=== PATIENT | female | born 1955 | race African-American/Black ===

== ENCOUNTER 2018-05-11 03:25 | Inpatient (IN) | payer MEDICARE, MEDICAID ==
[~2018-05-11] VITALS: Ht 157.5 cm; Wt 98.8 kg
[2018-05-11] MEDS ORDERED: CALC25 PO (03:42)
[2018-05-11] MEDS ORDERED: EPOE10I SQ (03:42)
[2018-05-11] MEDS ORDERED: ATOR40TA28 PO (03:42)
[2018-05-11] MEDS ORDERED: LIDO30GE4 TP (03:42)
[2018-05-11] MEDS ORDERED: INSU100V SQ (03:42)
[2018-05-11] MEDS ORDERED: FOLI1 PO (03:42)
[2018-05-11] MEDS ORDERED: WARF1 PO (03:42)
[2018-05-11] MEDS ORDERED: CARV3 PO (03:42)
[2018-05-11] MEDS ORDERED: NYST30CR9 TP (03:42)
[2018-05-11] MEDS ORDERED: FAMO20 PO (03:42)
[2018-05-11 04:40] LABS: BASOPHILS % (AUTO) 0.8 % (0.0-2.0); EOSINOPHILS % (AUTO) 0.3 % (1.0-6.0); HEMATOCRIT 33.1 % (36-46); HEMOGLOBIN 11.4 g/dL (12.0-16.0); LYMPHOCYTES # (AUTO) 1.4 K/uL (1.0-4.8); LYMPHOCYTES % (AUTO) 23.2 % (22.0-44.0); MEAN CORPUSCULAR HEMOGLOBIN 32.2 pg (26.0-34.0); MEAN CORPUSCULAR HGB CONC 34.5 G/dL (31.0-37.0); MEAN CORPUSCULAR VOLUME 94 fL (80-100); MONOCYTES # (AUTO) 0.6 K/uL (0.1-1.0); MONOCYTES % (AUTO) 10.5 % (2.0-9.0); NEUTROPHILS % (AUTO) 65.2 % (40.0-70.0); PLATELET COUNT (AUTO) 140 K/uL (150-450); RED BLOOD CELL COUNT(AUTO) 3.54 MIL/uL (4.00-5.20); RED CELL DISTRIBUTION WIDTH 21.6 % (11.5-14.5)
[2018-05-11] MEDS ORDERED: LORazepam 2 MG/ML VIAL IVP ONE ×3 (04:45→07:00)
[2018-05-11 04:48] LABS: ANION GAP 7 mmol/L (8-16); CALCIUM, TOTAL 8.3 mg/dL (8.8-10.5); CARBON DIOXIDE 27 mmol/L (22-29); CHLORIDE 97 mmol/L (98-107); GLOMERULAR FILTR. RATE CALC 5 mL/min (>60); GLUCOSE,RANDOM 81 mg/dL (70-110); INR 1.7 (0.9-1.1); POTASSIUM 5.2 mmol/L (3.5-5.1); PROTHROMBIN TIME 17.4 SEC (9.4-11.6); SODIUM SERUM 131 mmol/L (136-145); UREA NITROGEN, BLOOD 25 mg/dL (7-18)
[2018-05-11 04:53] LABS: ALANINE AMINOTRANSFERASE 52 U/L (12-78); ALBUMIN 1.6 g/dL (3.4-5.0); ALKALINE PHOSPHATASE 197 U/L (46-116); ASPARTATE AMINOTRANSFERASE 70 U/L (15-37); BILIRUBIN,TOTAL 0.5 mg/dL (0.1-1.0); LIPASE 25 U/L (73-393); TOTAL PROTEIN, SERUM 6.5 g/dL (6.4-8.2)
[2018-05-11 04:55] LABS: TROPONIN I 0.13 ng/mL (0.00-0.05)
[2018-05-11] MEDS ORDERED: HALOPERIDOL LACTATE 5 MG/ML VIAL IM ONE (05:00)
[2018-05-11] MEDS ORDERED: LORazepam 2 MG/ML VIAL IM ONE (05:00)
[2018-05-11 05:05] LABS: B-TYPE NATRIURETIC PEPTIDE 406 pg/mL (0-100)
[2018-05-11] MEDS ORDERED: SODIUM POLYSTYRENE SULFONATE 15 GM/60 ML SUSPENSION BOTTLE PO ONE (05:30)
[2018-05-11] MEDS ORDERED: 0.9% SODIUM CHLORIDE 10 ML SYRINGE IVP PRN (05:45)
[2018-05-11] MEDS ORDERED: ONDANSETRON HCL 4 MG/2 ML VIAL IVP PRN ×2 (05:45→06:00)
[2018-05-11] MEDS ORDERED: ACETAMINOPHEN 325 MG TABLET PO PRN (05:45)
[2018-05-11 05:51] LABS: GLUCOSE,POINT OF CARE 79 MG/DL (70-110)
[2018-05-11] MEDS ORDERED: IPRATROPIUM BROMIDE 0.5 MG/2.5 ML NEB SOLUTION NEB PRN (06:00)
[2018-05-11] MEDS ORDERED: MAGNESIUM HYDROXIDE SUSPENSION 30 ML UDCUP PO PRN (06:00)
[2018-05-11] MEDS ORDERED: VANCOMYCIN HCL 1 GM/D5% WATER 200 ML IV SCH (06:00)
[2018-05-11] MEDS ORDERED: ZOLPIDEM TARTRATE 5 MG TABLET PO PRN (06:00)
[2018-05-11] MEDS ORDERED: BISACODYL 10 MG RECTAL RECTAL SUPPOSITORY PR PRN (06:00)
[2018-05-11] MEDS ORDERED: ALBUTEROL SULFATE 2.5 MG/0.5 ML NEB SOLUTION NEB PRN (06:00)
[2018-05-11] MEDS ORDERED: VANCOMYCIN HCL 1 GM/D5% WATER 200 ML IV PRN (06:15)
[2018-05-11] MEDS ORDERED: VANCOMYCIN HCL 1 GM/D5% WATER 200 ML IV ONE ×2 (06:30→11:00)
[2018-05-11] MEDS ORDERED: DiphenhydrAMINE HCL 50 MG/ML VIAL IVP ONE (07:00)
[2018-05-11 08:29] LABS: GLUCOSE,POINT OF CARE 96 MG/DL (70-110)
[2018-05-11] MEDS: CALCITRIOL 0.25 MCG CAPSULE PO SCH (09:00)
[2018-05-11] MEDS: CARVEDILOL 3.125 MG TABLET PO SCH ×2 (09:00→20:54)
[2018-05-11] MEDS: FOLIC ACID 1 MG TABLET PO SCH (09:00)
[2018-05-11] MEDS: FAMOTIDINE 20 MG TABLET PO SCH (09:00)
[2018-05-11 11:18] VITALS: BP 101/65
[2018-05-11] MEDS ORDERED: SODIUM CHLORIDE 0.9% 2,000 ML IV ONE (12:17)
[2018-05-11] MEDS ORDERED: *CLINICAL-WARFARIN SODIUM DOSING CLINICAL ONE (15:00)
[2018-05-11] MEDS ORDERED: WARFARIN SODIUM-INR 2.0-3.0-RX DOSING PER PROTOCOL PO PRN (15:00)
[2018-05-11 16:06] VITALS: BP 112/73
[2018-05-11] MEDS: WARFARIN SODIUM 1 MG TABLET PO SCH (17:00)
[2018-05-11 20:07] VITALS: BP 138/89
[2018-05-11] MEDS: ATORVASTATIN CALCIUM 40 MG TABLET PO SCH (20:54)
[2018-05-11] MEDS ORDERED: WARFARIN SODIUM 1 MG TABLET PO SCH (21:00)
[2018-05-12] MEDS: HEPARIN SODIUM,PORCINE 5,000 UNITS/ML VIAL SQ SCH ×3 (00:07→21:48)
[2018-05-12] MEDS: ACETAMINOPHEN 325 MG TABLET PO PRN (00:19)
[2018-05-12 00:21] VITALS: BP 104/67
[2018-05-12] MEDS: OxyCODONE HCL/ACETAMINOPHEN 5-325 MG TABLET PO PRN ×2 (00:46→08:49)
[2018-05-12] MEDS: LORazepam 2 MG/ML VIAL IVP PRN ×2 (02:41→11:40)
[2018-05-12 04:30] VITALS: BP_SYST 123; BP_SYST 72; BP_DIAS 123; BP_DIAS 72
[2018-05-12 07:05] VITALS: BP 131/95
[2018-05-12] MEDS: CARVEDILOL 3.125 MG TABLET PO SCH ×3 (08:13→21:56)
[2018-05-12 09:15] LABS: EOSINOPHILS % (AUTO) 0.8 % (1.0-6.0); HEMATOCRIT 32.8 % (36-46); HEMOGLOBIN 10.8 g/dL (12.0-16.0); MEAN CORPUSCULAR VOLUME 94 fL (80-100); MONOCYTES # (AUTO) 0.7 K/uL (0.1-1.0); MONOCYTES % (AUTO) 14.3 % (2.0-9.0); NEUTROPHILS # (AUTO) 2.9 K/uL (1.8-7.7); NEUTROPHILS % (AUTO) 62.9 % (40.0-70.0); PLATELET COUNT (AUTO) 130 K/uL (150-450); RED BLOOD CELL COUNT(AUTO) 3.49 MIL/uL (4.00-5.20); RED CELL DISTRIBUTION WIDTH 20.8 % (11.5-14.5)
[2018-05-12 09:26] LABS: CALCIUM, TOTAL 7.7 mg/dL (8.8-10.5); CREATININE 5.17 mg/dL (0.60-1.30); POTASSIUM 4.3 mmol/L (3.5-5.1)
[2018-05-12 09:39] LABS: INR 1.8 (0.9-1.1); PROTHROMBIN TIME 18.7 SEC (9.4-11.6)
[2018-05-12 09:40] LABS: ALBUMIN 1.4 g/dL (3.4-5.0); BILIRUBIN,TOTAL 0.5 mg/dL (0.1-1.0); CHOL/HDL RATIO 2.1 (3.9-5.7); MAGNESIUM 1.5 mg/dL (1.80-2.40); PHOSPHORUS 4.3 mg/dL (2.5-4.9); THYROID STIMULATING HORMONE 4.97 uIU/mL (0.36-3.74); TOTAL PROTEIN, SERUM 6.2 g/dL (6.4-8.2)
[2018-05-12 09:58] LABS: HEMOGLOBIN A1C 4.3 % (4.5-6.2)
[2018-05-12] MEDS ORDERED: SODIUM CHLORIDE 0.9% 1,000 ML IV ONE (10:01)
[2018-05-12 11:21] VITALS: BP 109/94
[2018-05-12] MEDS ORDERED: DIGOXIN 250 MCG/ML 2 ML AMP IVP ONE ×3 (13:15→18:15)
[2018-05-12] MEDS ORDERED: LORazepam 2 MG/ML VIAL IM PRN (14:15)
[2018-05-12] MEDS ORDERED: DIGOXIN 125 MCG TABLET PO ONE (14:15)
[2018-05-12] MEDS: FOLIC ACID 1 MG TABLET PO SCH (14:34)
[2018-05-12] MEDS: NYSTATIN 30 GM CREAM TP SCH ×2 (14:35→21:48)
[2018-05-12] MEDS: FAMOTIDINE 20 MG TABLET PO SCH (14:35)
[2018-05-12] MEDS: CALCITRIOL 0.25 MCG CAPSULE PO SCH (14:35)
[2018-05-12] MEDS ORDERED: HEPARIN SODIUM,PORCINE 1,000 UNITS/ML VIAL IVP ONE (16:45)
[2018-05-12] MEDS: WARFARIN SODIUM 1 MG TABLET PO SCH (17:33)
[2018-05-12 17:43] VITALS: BP 123/89
[2018-05-12] MEDS ORDERED: HEPARIN SODIUM,PORCINE 1,000 UNITS/ML VIAL ONE (17:52)
[2018-05-12] MEDS ORDERED: DiphenhydrAMINE HCL 50 MG/ML VIAL ONE (17:52)
[2018-05-12] MEDS ORDERED: INSULIN LISPRO 100 UNITS/ML SQ PRN (18:00)
[2018-05-12] MEDS ORDERED: DEXTROSE 50%-WATER 25 GM/50 ML SYRINGE IVP PRN (18:00)
[2018-05-12 19:34] LABS: GLUCOMETER DEV NAME(LOC) 5S 2Q; GLUCOSE,POINT OF CARE 89 MG/DL (70-110)
[2018-05-12 20:10] VITALS: BP 117/65
[2018-05-12] MEDS: ATORVASTATIN CALCIUM 40 MG TABLET PO SCH (21:56)
[2018-05-12 22:04] LABS: GLUCOMETER DEV NAME(LOC) 5S 1M; GLUCOSE,POINT OF CARE 82 MG/DL (70-110)
[2018-05-12 22:05] LABS: GLUCOMETER DEV NAME(LOC) 5N 1P; GLUCOSE,POINT OF CARE 96 MG/DL (70-110)
[2018-05-12 22:05] LABS: GLUCOMETER DEV NAME(LOC) 5N 1P; GLUCOSE,POINT OF CARE 65 MG/DL (70-110)
[2018-05-13] VITALS (7 sets, daily range): BP systolic 100–143; BP diastolic 69–86
[2018-05-13 05:39] LABS: GLUCOMETER DEV NAME(LOC) 5S 2Q; GLUCOSE,POINT OF CARE 71 MG/DL (70-110)
[2018-05-13] MEDS: OxyCODONE HCL/ACETAMINOPHEN 5-325 MG TABLET PO PRN ×2 (05:50→15:25)
[2018-05-13] MEDS ORDERED: SODIUM CHLORIDE 0.9% 1,000 ML IV ONE (06:23)
[2018-05-13 08:01] LABS: BASOPHILS % (AUTO) 0.8 % (0.0-2.0); EOSINOPHILS % (AUTO) 0.8 % (1.0-6.0); HEMATOCRIT 29.4 % (36-46); HEMOGLOBIN 9.9 g/dL (12.0-16.0); LYMPHOCYTES # (AUTO) 1.6 K/uL (1.0-4.8); LYMPHOCYTES % (AUTO) 35.3 % (22.0-44.0); MEAN CORPUSCULAR HEMOGLOBIN 31.7 pg (26.0-34.0); MEAN CORPUSCULAR HGB CONC 33.8 G/dL (31.0-37.0); MEAN CORPUSCULAR VOLUME 94 fL (80-100); MONOCYTES # (AUTO) 0.4 K/uL (0.1-1.0); MONOCYTES % (AUTO) 8.1 % (2.0-9.0); NEUTROPHILS # (AUTO) 2.4 K/uL (1.8-7.7); PLATELET COUNT (AUTO) 120 K/uL (150-450); RED BLOOD CELL COUNT(AUTO) 3.13 MIL/uL (4.00-5.20); RED CELL DISTRIBUTION WIDTH 20.2 % (11.5-14.5)
[2018-05-13 08:14] LABS: ALBUMIN 1.3 g/dL (3.4-5.0); BILIRUBIN,TOTAL 0.5 mg/dL (0.1-1.0); CALCIUM, TOTAL 7.4 mg/dL (8.8-10.5); CREATININE 2.34 mg/dL (0.60-1.30); MAGNESIUM 1.4 mg/dL (1.80-2.40); POTASSIUM 3.5 mmol/L (3.5-5.1); TOTAL PROTEIN, SERUM 5.7 g/dL (6.4-8.2); VANCOMYCIN,RANDOM 12.9 mcg/mL (25.0-50.0)
[2018-05-13 08:15] LABS: INR 2.1 (0.9-1.1)
[2018-05-13] MEDS: CARVEDILOL 3.125 MG TABLET PO SCH ×3 (08:24→20:12)
[2018-05-13] MEDS: FAMOTIDINE 20 MG TABLET PO SCH (08:24)
[2018-05-13] MEDS: EPOETIN ALFA 10,000 UNITS/ML VIAL SQ SCH ×2 (08:24→12:34)
[2018-05-13] MEDS: FOLIC ACID 1 MG TABLET PO SCH (08:24)
[2018-05-13] MEDS: LORazepam 2 MG/ML VIAL IVP PRN ×3 (08:25→21:41)
[2018-05-13] MEDS: HEPARIN SODIUM,PORCINE 5,000 UNITS/ML VIAL SQ SCH ×2 (08:25→20:13)
[2018-05-13] MEDS: NYSTATIN 30 GM CREAM TP SCH ×2 (12:34→20:13)
[2018-05-13] MEDS: CALCITRIOL 0.25 MCG CAPSULE PO SCH (12:34)
[2018-05-13] MEDS ORDERED: MAGNESIUM SULFATE 2 GM/WATER 50 ML IV ONE (15:15)
[2018-05-13] MEDS ORDERED: SODIUM CHLORIDE 0.9% 100 ML ONE (16:20)
[2018-05-13] MEDS: WARFARIN SODIUM 1 MG TABLET PO SCH (16:54)
[2018-05-13] MEDS: VITAMIN B COMP/VIT C/FOLIC ACID CAPSULE PO SCH (16:54)
[2018-05-13] MEDS: ATORVASTATIN CALCIUM 40 MG TABLET PO SCH (20:13)
[2018-05-13 20:23] LABS: GLUCOMETER DEV NAME(LOC) 5N 1P; GLUCOSE,POINT OF CARE 79 MG/DL (70-110)
[2018-05-13 23:28] LABS: GLUCOMETER DEV NAME(LOC) 5S 2Q; GLUCOSE,POINT OF CARE 105 MG/DL (70-110)
[2018-05-13 23:28] LABS: GLUCOMETER DEV NAME(LOC) 5S 2Q; GLUCOSE,POINT OF CARE 117 MG/DL (70-110)
[2018-05-14 04:32] VITALS: BP 141/72
[2018-05-14 06:46] LABS: BASOPHILS % (AUTO) 0.6 % (0.0-2.0); EOSINOPHILS % (AUTO) 0 % (1.0-6.0); HEMATOCRIT 29.1 % (36-46); HEMOGLOBIN 9.9 g/dL (12.0-16.0); LYMPHOCYTES # (AUTO) 1.9 K/uL (1.0-4.8); LYMPHOCYTES % (AUTO) 27.1 % (22.0-44.0); MEAN CORPUSCULAR HEMOGLOBIN 31.5 pg (26.0-34.0); MEAN CORPUSCULAR HGB CONC 33.9 G/dL (31.0-37.0); MEAN CORPUSCULAR VOLUME 93 fL (80-100); MONOCYTES # (AUTO) 0.7 K/uL (0.1-1.0); MONOCYTES % (AUTO) 10.2 % (2.0-9.0); NEUTROPHILS # (AUTO) 4.3 K/uL (1.8-7.7); NEUTROPHILS % (AUTO) 62.1 % (40.0-70.0); PLATELET COUNT (AUTO) 148 K/uL (150-450); RED BLOOD CELL COUNT(AUTO) 3.14 MIL/uL (4.00-5.20); RED CELL DISTRIBUTION WIDTH 20.1 % (11.5-14.5)
[2018-05-14 06:50] LABS: INR 1.7 (0.9-1.1); PROTHROMBIN TIME 17.4 SEC (9.4-11.6)
[2018-05-14 07:01] LABS: ALBUMIN 1.4 g/dL (3.4-5.0); BILIRUBIN,TOTAL 0.5 mg/dL (0.1-1.0); CALCIUM, TOTAL 7.7 mg/dL (8.8-10.5); CREATININE 2.45 mg/dL (0.60-1.30); MAGNESIUM 1.9 mg/dL (1.80-2.40); POTASSIUM 4.5 mmol/L (3.5-5.1); TOTAL PROTEIN, SERUM 5.9 g/dL (6.4-8.2)
[2018-05-14] MEDS ORDERED: SODIUM CHLORIDE 0.9% 1,000 ML IV ONE (07:01)
[2018-05-14 07:36] VITALS: BP 124/57
[2018-05-14] MEDS: NYSTATIN 30 GM CREAM TP SCH ×2 (09:00→20:56)
[2018-05-14] MEDS: CALCITRIOL 0.25 MCG CAPSULE PO SCH (09:00)
[2018-05-14] MEDS: FOLIC ACID 1 MG TABLET PO SCH (09:00)
[2018-05-14] MEDS: METOPROLOL SUCCINATE 50 MG ER TABLET PO SCH ×2 (09:00→20:56)
[2018-05-14] MEDS: VITAMIN B COMP/VIT C/FOLIC ACID CAPSULE PO SCH (09:00)
[2018-05-14] MEDS: FAMOTIDINE 20 MG TABLET PO SCH (09:00)
[2018-05-14] MEDS: LORazepam 2 MG/ML VIAL IVP PRN (10:57)
[2018-05-14 11:13] VITALS: BP 108/58
[2018-05-14 15:14] VITALS: BP 109/96
[2018-05-14] MEDS: WARFARIN SODIUM 1 MG TABLET PO SCH (17:00)
[2018-05-14] MEDS ORDERED: HEPARIN SODIUM,PORCINE 1,000 UNITS/ML VIAL ONE (17:46)
[2018-05-14] MEDS: HEPARIN SODIUM,PORCINE 5,000 UNITS/ML VIAL SQ SCH ×2 (18:46→20:56)
[2018-05-14] MEDS: CefTRIAXone SODIUM 2 GM in DEXTROSE 5%-WATER 20 ML IV SCH (18:46)
[2018-05-14 19:32] VITALS: BP 105/67
[2018-05-14] MEDS: ATORVASTATIN CALCIUM 40 MG TABLET PO SCH (20:56)
[2018-05-14 23:03] LABS: ABG A-A DIFF O2 47.5 mmHg (10-20.0); ABG CARBOXYHEMOGLOBIN 0.4 % (0.0-1.5); ABG HCO3 22.3 mmol/L (22.0-26.0); ABG METHEMOGLOBIN 0.3 % (0.0-1.5); ABG OXYGEN CONTENT 14.8 mL/dL (15.0-23.0); ABG OXYGEN SATURATION 99.5 % (95.0-98.0); ABG OXYHEMOGLOBIN 98.8 % (94.0-100.0); ABG PCO2 22 mmHg (35-45); ABG PH 7.549 (7.35-7.450); ABG TOTAL HEMOGLOBIN 10.4 G/dL (12.0-18.0); O2 DEVICE,BLOOD GAS CANNULA (ROOM AIR); PO2, ARTERIAL BG 155.5 mmHg (79.0-87.0); SITE, BLOOD GAS LFT RADIAL; SOURCE, BLOOD GAS ARTERIAL; TEMPERATURE, FAHRENHEIT, BG 98.6 FAHREN (96.0-98.6)
[2018-05-15 00:30] VITALS: BP 104/60
[2018-05-15 03:20] VITALS: BP 109/76
[2018-05-15 06:43] LABS: BASOPHILS % (AUTO) 0.2 % (0.0-2.0); EOSINOPHILS % (AUTO) 0 % (1.0-6.0); HEMOGLOBIN 9.7 g/dL (12.0-16.0); LYMPHOCYTES # (AUTO) 1.4 K/uL (1.0-4.8); LYMPHOCYTES % (AUTO) 16.3 % (22.0-44.0); MEAN CORPUSCULAR HEMOGLOBIN 31.5 pg (26.0-34.0); MEAN CORPUSCULAR HGB CONC 33.4 G/dL (31.0-37.0); MEAN CORPUSCULAR VOLUME 94 fL (80-100); MONOCYTES # (AUTO) 0.7 K/uL (0.1-1.0); MONOCYTES % (AUTO) 8.4 % (2.0-9.0); NEUTROPHILS # (AUTO) 6.2 K/uL (1.8-7.7); NEUTROPHILS % (AUTO) 75.1 % (40.0-70.0); PLATELET COUNT (AUTO) 163 K/uL (150-450); RED BLOOD CELL COUNT(AUTO) 3.08 MIL/uL (4.00-5.20); RED CELL DISTRIBUTION WIDTH 20.4 % (11.5-14.5)
[2018-05-15 06:49] LABS: INR 1.8 (0.9-1.1)
[2018-05-15 07:12] LABS: ALBUMIN 1.4 g/dL (3.4-5.0); BILIRUBIN,TOTAL 0.5 mg/dL (0.1-1.0); CALCIUM, TOTAL 7.8 mg/dL (8.8-10.5); CREATININE 2.49 mg/dL (0.60-1.30); MAGNESIUM 1.6 mg/dL (1.80-2.40); POTASSIUM 4.5 mmol/L (3.5-5.1); TOTAL PROTEIN, SERUM 6.1 g/dL (6.4-8.2)
[2018-05-15] MEDS: METOPROLOL SUCCINATE 50 MG ER TABLET PO SCH ×2 (07:33→21:00)
[2018-05-15] MEDS: VITAMIN B COMP/VIT C/FOLIC ACID CAPSULE PO SCH (07:33)
[2018-05-15] MEDS: CALCITRIOL 0.25 MCG CAPSULE PO SCH (07:33)
[2018-05-15] MEDS: HEPARIN SODIUM,PORCINE 5,000 UNITS/ML VIAL SQ SCH ×2 (07:33→22:12)
[2018-05-15] MEDS: FOLIC ACID 1 MG TABLET PO SCH (07:33)
[2018-05-15] MEDS: FAMOTIDINE 20 MG TABLET PO SCH (07:33)
[2018-05-15] MEDS: NYSTATIN 30 GM CREAM TP SCH ×2 (07:34→21:00)
[2018-05-15 07:40] VITALS: BP 126/40
[2018-05-15 08:19] LABS: GLUCOMETER DEV NAME(LOC) 5S 1M; GLUCOSE,POINT OF CARE 111 MG/DL (70-110)
[2018-05-15 08:19] LABS: GLUCOMETER DEV NAME(LOC) 5S 1M; GLUCOSE,POINT OF CARE 118 MG/DL (70-110)
[2018-05-15] MEDS ORDERED: MAGNESIUM SULFATE 1 GM in DEXTROSE 5%-WATER 50 ML IV ONE (10:30)
[2018-05-15 11:04] VITALS: BP 100/58
[2018-05-15] MEDS: LORazepam 2 MG/ML VIAL IVP PRN (12:41)
[2018-05-15] MEDS: AMIODARONE HCL 200 MG TABLET PO SCH ×2 (16:00→22:13)
[2018-05-15] MEDS: CefTRIAXone SODIUM 2 GM in DEXTROSE 5%-WATER 20 ML IV SCH (16:07)
[2018-05-15 18:04] LABS: GLUCOMETER DEV NAME(LOC) 5N 1P; GLUCOSE,POINT OF CARE 129 MG/DL (70-110)
[2018-05-15 18:15] VITALS: BP 104/72
[2018-05-15] MEDS ORDERED: PHENYLEPHRINE HCL 800 MG in DEXTROSE 5%-WATER 170 ML IV PRN (18:52)
[2018-05-15 20:00] VITALS: BP 56/24
[2018-05-15] MEDS: ATORVASTATIN CALCIUM 40 MG TABLET PO SCH (22:13)
[2018-05-16] VITALS (7 sets, daily range): BP systolic 40–107; BP diastolic 21–56
[2018-05-16] MEDS: ACETAMINOPHEN 325 MG TABLET PO PRN (02:59)
[2018-05-16 06:44] LABS: GLUCOSE,POINT OF CARE 76 MG/DL (70-110)
[2018-05-16 06:44] LABS: GLUCOSE,POINT OF CARE 94 MG/DL (70-110)
[2018-05-16 06:44] LABS: GLUCOSE,POINT OF CARE 98 MG/DL (70-110)
[2018-05-16] MEDS ORDERED: NOREPINEPHRINE 4 MG/D5%-WATER 250 ML IV ONE (07:43)
[2018-05-16] MEDS: NOREPINEPHRINE 4 MG/D5%-WATER 250 ML IV PRN ×5 (07:45→21:11)
[2018-05-16] MEDS ORDERED: SODIUM CHLORIDE 0.9% 250 ML IV ONE (07:45)
[2018-05-16 08:19] LABS: ABG A-A DIFF O2 96.7 mmHg (10-20.0); ABG BASE EXCESS -19.2 mmol/L (-2.0-3.0); ABG CARBOXYHEMOGLOBIN 0.5 % (0.0-1.5); ABG HCO3 11.6 mmol/L (22.0-26.0); ABG METHEMOGLOBIN 0.3 % (0.0-1.5); ABG OXYGEN CONTENT 14.2 mL/dL (15.0-23.0); ABG OXYGEN SATURATION 98.1 % (95.0-98.0); ABG OXYHEMOGLOBIN 97.3 % (94.0-100.0); ABG PH 7.346 (7.35-7.450); ABG TOTAL HEMOGLOBIN 10.2 G/dL (12.0-18.0); PO2, ARTERIAL BG 117.5 mmHg (79.0-87.0); SOURCE, BLOOD GAS ARTERIAL; TEMPERATURE, FAHRENHEIT, BG 97.5 FAHREN (96.0-98.6)
[2018-05-16 08:20] LABS: ABG PCO2 12 mmHg (35-45); O2 DEVICE,BLOOD GAS CANNULA (ROOM AIR); SITE, BLOOD GAS LFT RADIAL
[2018-05-16] MEDS ORDERED: RAPID SEQUENCE KIT [RSI] 1 EACH KIT ONE (08:32)
[2018-05-16] MEDS ORDERED: SUCCINYLCHOLINE CHLORIDE 20 MG/ML 10 ML VIAL ONE (08:32)
[2018-05-16 08:47] LABS: BASOPHILS % (AUTO) 0.3 % (0.0-2.0); EOSINOPHILS % (AUTO) 0.4 % (1.0-6.0); HEMOGLOBIN 10.2 g/dL (12.0-16.0); LYMPHOCYTES % (AUTO) 14.3 % (22.0-44.0); MEAN CORPUSCULAR HEMOGLOBIN 30.6 pg (26.0-34.0); MEAN CORPUSCULAR HGB CONC 30.9 G/dL (31.0-37.0); MEAN CORPUSCULAR VOLUME 99 fL (80-100); MONOCYTES # (AUTO) 0.6 K/uL (0.1-1.0); MONOCYTES % (AUTO) 4.5 % (2.0-9.0); NEUTROPHILS # (AUTO) 11.3 K/uL (1.8-7.7); NEUTROPHILS % (AUTO) 80.5 % (40.0-70.0); PLATELET COUNT (AUTO) 193 K/uL (150-450); RED BLOOD CELL COUNT(AUTO) 3.33 MIL/uL (4.00-5.20); RED CELL DISTRIBUTION WIDTH 20.8 % (11.5-14.5)
[2018-05-16 08:52] LABS: INR 2.4 (0.9-1.1); PROTHROMBIN TIME 24.8 SEC (9.4-11.6)
[2018-05-16] MEDS: CALCITRIOL 0.25 MCG CAPSULE PO SCH (09:00)
[2018-05-16] MEDS: VITAMIN B COMP/VIT C/FOLIC ACID CAPSULE PO SCH (09:00)
[2018-05-16] MEDS: EPOETIN ALFA 10,000 UNITS/ML VIAL SQ SCH (09:00)
[2018-05-16] MEDS: FOLIC ACID 1 MG TABLET PO SCH (09:00)
[2018-05-16] MEDS: AMIODARONE HCL 200 MG TABLET PO SCH ×3 (09:00→21:00)
[2018-05-16] MEDS: FAMOTIDINE 20 MG TABLET PO SCH (09:00)
[2018-05-16 09:05] LABS: ALBUMIN 1.4 g/dL (3.4-5.0); BILIRUBIN,TOTAL 0.6 mg/dL (0.1-1.0); CALCIUM, TOTAL 8.6 mg/dL (8.8-10.5); CREATININE 3.9 mg/dL (0.60-1.30); MAGNESIUM 2.5 mg/dL (1.80-2.40); PHOSPHORUS 6.2 mg/dL (2.5-4.9); POTASSIUM 5.3 mmol/L (3.5-5.1); TOTAL PROTEIN, SERUM 6.5 g/dL (6.4-8.2)
[2018-05-16] MEDS ORDERED: SODIUM CHLORIDE 0.9% 500 ML IV ONE ×2 (09:22→10:31)
[2018-05-16] MEDS: HEPARIN SODIUM,PORCINE 5,000 UNITS/ML VIAL SQ SCH ×2 (10:36→21:11)
[2018-05-16] MEDS: NYSTATIN 30 GM CREAM TP SCH ×2 (10:37→21:11)
[2018-05-16 11:45] LABS: ABG A-A DIFF O2 131.4 mmHg (10-20.0); ABG BASE EXCESS -22.4 mmol/L (-2.0-3.0); ABG HCO3 9.4 mmol/L (22.0-26.0); ABG METHEMOGLOBIN 0.4 % (0.0-1.5); ABG OXYGEN SATURATION 97.7 % (95.0-98.0); ABG OXYHEMOGLOBIN 96.3 % (94.0-100.0); ABG PCO2 14 mmHg (35-45); ABG PH 7.226 (7.35-7.450); ABG TOTAL HEMOGLOBIN 10.2 G/dL (12.0-18.0); O2 DEVICE,BLOOD GAS VENTILATOR (ROOM AIR); PEEP,BG 5 cm H2O; PO2, ARTERIAL BG 104.2 mmHg (79.0-87.0); SITE, BLOOD GAS LFT RADIAL; SOURCE, BLOOD GAS ARTERIAL; TEMPERATURE, FAHRENHEIT, BG 94.3 FAHREN (96.0-98.6); VT, ABG 500 ml
[2018-05-16] MEDS ORDERED: ETOMIDATE 2 MG/ML 10 ML VIAL IVP ONE (12:00)
[2018-05-16] MEDS ORDERED: SUCCINYLCHOLINE CHLORIDE 20 MG/ML 10 ML VIAL IVP ONE (12:00)
[2018-05-16] MEDS: SODIUM BICARBONATE 150 MEQ in DEXTROSE 5%-WATER 1,000 ML IV SCH (12:44)
[2018-05-16 13:04] LABS: GLUCOSE,POINT OF CARE 165 MG/DL (70-110)
[2018-05-16 13:04] LABS: GLUCOSE,POINT OF CARE 165 MG/DL (70-110)
[2018-05-16 13:04] LABS: GLUCOSE,POINT OF CARE 54 MG/DL (70-110)
[2018-05-16] MEDS: VASOPRESSIN 40 UNITS in DEXTROSE 5%-WATER 98 ML IV PRN (14:20)
[2018-05-16] MEDS: CefTRIAXone SODIUM 2 GM in DEXTROSE 5%-WATER 20 ML IV SCH (14:21)
[2018-05-16] MEDS ORDERED: SODIUM CHLORIDE 0.9% 1,000 ML IV ONE (15:21)
[2018-05-16] MEDS ORDERED: POTASSIUM CHLORIDE 15 MEQ in NXSTAGE RFP-402 K0/CA3 5,000 ML IRRIG PRN (16:00)
[2018-05-16] MEDS: DOPamine HCL 400 MG/D5%-WATER 250 ML IV PRN ×2 (18:12→22:23)
[2018-05-16 18:53] LABS: GLUCOSE,POINT OF CARE 128 MG/DL (70-110)
[2018-05-16] MEDS: ATORVASTATIN CALCIUM 40 MG TABLET PO SCH (21:11)
[2018-05-16] MEDS ORDERED: HEPARIN SODIUM,PORCINE 1,000 UNITS/ML VIAL IVP PRN ×2 (21:15)
[2018-05-16] MEDS ORDERED: NOREPINEPHRINE BITARTRATE 16 MG in DEXTROSE 5%-WATER 234 ML IV PRN (21:45)
[2018-05-16 22:54] LABS: GLUCOMETER DEV NAME(LOC) 5S 2Q; GLUCOSE,POINT OF CARE 90 MG/DL (70-110)
[2018-05-16 22:54] LABS: GLUCOMETER DEV NAME(LOC) 5S 2Q; GLUCOSE,POINT OF CARE 88 MG/DL (70-110)
[2018-05-16 22:54] LABS: GLUCOMETER DEV NAME(LOC) 5S 2Q; GLUCOSE,POINT OF CARE 75 MG/DL (70-110)
[2018-05-16 22:54] LABS: GLUCOMETER DEV NAME(LOC) 5S 2Q; GLUCOSE,POINT OF CARE 105 MG/DL (70-110)
[2018-05-17] VITALS: BP 96/24
[2018-05-17] MEDS: VASOPRESSIN 40 UNITS in DEXTROSE 5%-WATER 98 ML IV PRN (01:08)
[2018-05-17] MEDS: DOPamine HCL 400 MG/D5%-WATER 250 ML IV PRN (01:19)
[2018-05-17] MEDS: SODIUM BICARBONATE 150 MEQ in DEXTROSE 5%-WATER 1,000 ML IV SCH (02:54)
[2018-05-17 04:00] VITALS: BP 69/20
[2018-05-17] MEDS ORDERED: ATROPINE SULFATE 0.1 MG/ML 10 ML SYRINGE IVP ONE ×3 (04:37→04:43)
[2018-05-17] MEDS ORDERED: SODIUM BICARBONATE [ADULT] 8.4% 50 MEQ/50 ML SYRINGE IVP ONE (05:24)
[2018-05-17] MEDS ORDERED: EPINEPHrine 1:10,000 [1 MG/10 ML] SYRINGE IVP ONE (05:24)
[2018-05-17 05:32] LABS: HEMATOCRIT 27.1 % (36-46); HEMOGLOBIN 7.7 g/dL (12.0-16.0); MEAN CORPUSCULAR HEMOGLOBIN 31.2 pg (26.0-34.0); MEAN CORPUSCULAR HGB CONC 28.3 G/dL (31.0-37.0); MEAN CORPUSCULAR VOLUME 110 fL (80-100); PLATELET COUNT (AUTO) 121 K/uL (150-450); RED BLOOD CELL COUNT(AUTO) 2.46 MIL/uL (4.00-5.20); RED CELL DISTRIBUTION WIDTH 21.6 % (11.5-14.5)
[2018-05-17 05:34] LABS: PROTHROMBIN TIME 49.4 SEC (9.4-11.6)
[2018-05-17 05:53] LABS: ALANINE AMINOTRANSFERASE 773 U/L (12-78); ALBUMIN 0.8 g/dL (3.4-5.0); ALKALINE PHOSPHATASE 192 U/L (46-116); BILIRUBIN,TOTAL 1.1 mg/dL (0.1-1.0); CALCIUM, TOTAL 7.2 mg/dL (8.8-10.5); CHLORIDE 89 mmol/L (98-107); CREATININE 3.75 mg/dL (0.60-1.30); GLOMERULAR FILTR. RATE CALC 15 mL/min (>60); GLUCOSE,RANDOM 259 mg/dL (70-110); TOTAL PROTEIN, SERUM 4.4 g/dL (6.4-8.2); UREA NITROGEN, BLOOD 13 mg/dL (7-18); VANCOMYCIN,RANDOM 6.2 mcg/mL (25.0-50.0)
[2018-05-17 07:52] LABS: ANION GAP 30 mmol/L (8-16); ASPARTATE AMINOTRANSFERASE 2767 U/L (15-37); CARBON DIOXIDE < 5 mmol/L (22-29); POTASSIUM 7.2 mmol/L (3.5-5.1); SODIUM SERUM 124 mmol/L (136-145)
[2018-05-17 07:59] LABS: GLUCOSE,POINT OF CARE 262 MG/DL (70-110)
[2018-05-17 08:08] LABS: BAND NEUTROPHILS % (MANUAL) 10 % (0-5); LYMPHOCYTES % (MANUAL) 24 % (22-44); METAMYELOCYTES % 2 % (0-0); MONOCYTES % (MANUAL) 5 % (2-9); PLATELET MORPHOLOGY COMMENT GIANT PLTS PRESENT; SEGMENTED NEUTROPHILS % 59 % (40-70)
[2018-05-17 12:29] LABS: GLUCOMETER DEV NAME(LOC) 5N 2S; GLUCOSE,POINT OF CARE 113 MG/DL (70-110)
[2018-05-17 12:29] LABS: GLUCOMETER DEV NAME(LOC) 5N 2S; GLUCOSE,POINT OF CARE 94 MG/DL (70-110)
== END 2018-05-17 05:25 | disposition expired | DRG 871 ==
LOC: EMS 03:27 → 5S 06:21 → ICU 05-15 18:30
PROVIDERS: ADMIT Internal Medicine; ATTEND Hospitalist
PROC: 5A1D70Z Performance of Urinary Filtration, Intermittent, Less than 6 Hours Per Day (ICD-10-PCS; 2018-05-11)
PROC: 05HB33Z Insertion of Infusion Device into Right Basilic Vein, Percutaneous Approach (ICD-10-PCS; 2018-05-12)
PROC: B54MZZA Ultrasonography of Right Upper Extremity Veins, Guidance (ICD-10-PCS; 2018-05-12)
PROC: 5A1D70Z Performance of Urinary Filtration, Intermittent, Less than 6 Hours Per Day (ICD-10-PCS; 2018-05-12)
PROC: 5A1D70Z Performance of Urinary Filtration, Intermittent, Less than 6 Hours Per Day (ICD-10-PCS; 2018-05-13)
PROC: 5A1D70Z Performance of Urinary Filtration, Intermittent, Less than 6 Hours Per Day (ICD-10-PCS; 2018-05-14)
PROC: 5A1935Z Respiratory Ventilation, Less than 24 Consecutive Hours (ICD-10-PCS; principal; 2018-05-16)
PROC: 0BH17EZ Insertion of Endotracheal Airway into Trachea, Via Natural or Artificial Opening (ICD-10-PCS; 2018-05-16)
PROC: 04HY32Z Insertion of Monitoring Device into Lower Artery, Percutaneous Approach (ICD-10-PCS; 2018-05-16)
PROC: 5A1D70Z Performance of Urinary Filtration, Intermittent, Less than 6 Hours Per Day (ICD-10-PCS; 2018-05-16)
DX: A41.9 Sepsis, unspecified organism (principal); N18.6 End stage renal disease; J96.01 Acute respiratory failure with hypoxia; G93.41 Metabolic encephalopathy; E87.1 Hypo-osmolality and hyponatremia; I13.2 Hypertensive heart and chronic kidney disease with heart failure and with stage 5 chronic kidney disease, or end stage renal disease; E66.2 Morbid (severe) obesity with alveolar hypoventilation; E87.2 Acidosis; I48.92 Unspecified atrial flutter; N25.81 Secondary hyperparathyroidism of renal origin; I50.40 Unspecified combined systolic (congestive) and diastolic (congestive) heart failure; E88.09 Other disorders of plasma-protein metabolism, not elsewhere classified; E83.51 Hypocalcemia; E87.5 Hyperkalemia; E11.22 Type 2 diabetes mellitus with diabetic chronic kidney disease; M19.90 Unspecified osteoarthritis, unspecified site; D63.1 Anemia in chronic kidney disease; E83.42 Hypomagnesemia; I27.20 Pulmonary hypertension, unspecified; I48.91 Unspecified atrial fibrillation; K21.9 Gastro-esophageal reflux disease without esophagitis; J44.9 Chronic obstructive pulmonary disease, unspecified; K27.9 Peptic ulcer, site unspecified, unspecified as acute or chronic, without hemorrhage or perforation; Z79.01 Long term (current) use of anticoagulants; Z79.84 Long term (current) use of oral hypoglycemic drugs; Z93.2 Ileostomy status; Z99.2 Dependence on renal dialysis; Z91.19 Patient's noncompliance with other medical treatment and regimen; Z92.89 Personal history of other medical treatment; Z68.39 Body mass index [BMI] 39.0-39.9, adult; Z91.02 Food additives allergy status; Z91.011 Allergy to milk products; Z88.2 Allergy status to sulfonamides; Z88.8 Allergy status to other drugs, medicaments and biological substances; Z86.14 Personal history of Methicillin resistant Staphylococcus aureus infection; Z86.718 Personal history of other venous thrombosis and embolism; Z86.711 Personal history of pulmonary embolism; Z91.15 Patient's noncompliance with renal dialysis; Z86.73 Personal history of transient ischemic attack (TIA), and cerebral infarction without residual deficits
CPT/HCPCS: 36245; 36569; 51702; 70450; 76937; 82306; 82805; 82948; 83036; 83605; 83735; 84100; 84443; 87040; 87081; 87340; 90935; 93005; 93306; 94002; 95816; 96365; 96366; 96372; 96375; 96376; 97161; 99285; G0480; J0171; J0330; J0461; J0696; J0885; J1160; J1200; J1265; J1630; J1644; J2060; J2370; J3370; J3475; J3480; J3490; J7030; J7040; J7050; J7060